=== PATIENT | male | born 1965 | race Caucasian/White ===

== ENCOUNTER 2017-01-07 05:50 | Emergency (ER) | payer MEDICAID ==
[~2017-01-07] VITALS: Ht 154.9 cm; Wt 78.5 kg
[2017-01-07 05:55] VITALS: Ht 154.9 cm; Wt 78.5 kg
--- NOTE | 2017-01-07 07:06 | ERA ---
ER Documentation Chief Complaint Date/Time DATE: 01/07/17 TIME: 07:04 Chief Complaint ABDOMINAL PAIN X1DAY; DENIES N/V/D HPI Patient is a 51-year-old male who presents with gradual onset, constant, moderate, dull right lower quadrant pain for 16 hours. He denies fever, denies vomiting, denies dysuria, denies hematuria. He denies migration or radiation of pain. He denies testicular pain. ROS All systems reviewed and are negative except as per history of present illness. Medications Home Meds Active Scripts Dicyclomine Hcl* (Bentyl*) 10 Mg Capsule, 10 MG PO QID Y for PAIN, #20 CAP Prov:ESTEBAN SALCIDO MD 01/07/17 Polyethylene Glycol* (Miralax*) 17 Gm Powd.pack, 17 GM PO DAILY, #3 Prov:ESTEBAN SALCIDO MD 01/07/17 Allergies Allergies: Coded Allergies: No Known Allergy (Unverified , 11/29/14) PMhx/Soc Past medical history: None Past surgical history: None Social history: Denies tobacco or alcohol History of Surgery: No Anesthesia Reaction: No Hx Neurological Disorder: No Hx Respiratory Disorders: No Hx Cardiac Disorders: No Hx Psychiatric Problems: No Hx Miscellaneous Medical Probl: No Hx Alcohol Use: No Hx Substance Use: No Hx Tobacco Use: No FmHx Family History: No coronary disease, No diabetes Physical Exam Vitals Vital Signs Date Time Temp Pulse Resp B/P Pulse Ox O2 Delivery O2 Flow Rate FiO2 01/07/17 05:55 97.0 63 16 110/73 100 Physical Exam Const: Alert, no acute distress Head: Atraumatic Eyes: Normal Conjunctiva, no pallor, no icterus ENT: Normal External Ears, Nose and Mouth. Mucous membranes moist Neck: Full range of motion..~ No meningismus. Resp: Clear to auscultation bilaterally, no wheezes, rales Cardio: Regular rate and rhythm, no murmurs Abd: Soft, tender in the right lower quadrant with involuntary guarding. Positive Rovsing sign, positive obturator sign. No rebound. Skin: No petechiae or rashes Back: No midline or flank tenderness, no CVA tenderness. Ext: No cyanosis, or edema Neur: Awake and alert, cranial nerves II through XII intact bilaterally, strength and sensation full in 4 extremities. Psych: Normal Mood and Affect Result Diagram: 01/07/17 0722 01/07/17 0722 Results 24 hrs Laboratory Tests Test 01/07/17 07:22 01/07/17 07:24 White Blood Count 5.110^3/ul Red Blood Count 4.8910^6/ul Hemoglobin 14.2g/dl Hematocrit 41.7% Mean Corpuscular Volume 85.3fl Mean Corpuscular Hemoglobin 29.0pg Mean Corpuscular Hemoglobin Concent 34.1g/dl Red Cell Distribution Width 12.5% Platelet Count 72869^3/UL Mean Platelet Volume 11.3fl Neutrophils % 50.4% Lymphocytes % 39.6% Monocytes % 8.0% Eosinophils % 1.4% Basophils % 0.4% Nucleated Red Blood Cells % 0.0/100WBC Neutrophils # 2.610^3/ul Lymphocytes # 2.010^3/ul Monocytes # 0.410^3/ul Eosinophils # 0.110^3/ul Basophils # 0.010^3/ul Nucleated Red Blood Cells # 0.010^3/ul Prothrombin Time 13.6Sec Prothrombin Time Ratio 1.1 INR International Normalized Ratio 1.04 Activated Partial Thromboplast Time 30.3Sec Sodium Level 143mmol/L Potassium Level 3.6mmol/L Chloride Level 101mmol/L Carbon Dioxide Level 27mmol/L Anion Gap 19 Blood Urea Nitrogen 14mg/dl Creatinine 0.86mg/dl Glucose Level 88mg/dl Calcium Level 9.4mg/dl Total Bilirubin 0.8mg/dl Direct Bilirubin 0.00mg/dl Indirect Bilirubin 0.8mg/dl Aspartate Amino Transf (AST/SGOT) 29IU/L Alanine Aminotransferase (ALT/SGPT) 38IU/L Alkaline Phosphatase 89IU/L Total Protein 7.6g/dl Albumin 4.8g/dl Globulin 2.80g/dl Albumin/Globulin Ratio 1.71 Lipase 70U/L Urine Color YELLOW Urine Clarity CLEAR Urine pH 6.0 Urine Specific [place] 1.009 Urine Ketones NEGATIVEmg/dL Urine Nitrite NEGATIVEmg/dL Urine Bilirubin NEGATIVEmg/dL Urine Urobilinogen NEGATIVEmg/dL Urine Leukocyte Esterase NEGATIVELeu/ul Urine Hemoglobin NEGATIVEmg/dL Urine Glucose NEGATIVEmg/dL Urine Total Protein NEGATIVEmg/dl Current Medications Medications (Trade) Dose Ordered Sig/[place] Route PRN Reason Start Time Stop Time Status Last Admin Dose Admin IV Flush 10 ml 10 ml STK-MED ONCE .ROUTE 01/07/17 08:25 01/07/17 08:26 DC Sodium Chloride (NS) 100 ml @ ud STK-MED ONCE .ROUTE 01/07/17 08:25 01/07/17 08:26 DC Iohexol (Omnipaque 300mg/ ml) 150 ml STK-MED ONCE .ROUTE 01/07/17 08:25 01/07/17 08:26 DC Procedures/MDM MDM: Patient is a 51-year-old male who presents with 16 hours of right lower quadrant pain. There is no history of fever, vomiting. There is no leukocytosis. The patient did have guarding and a positive Rovsing sign, so a CT scan was performed to exclude appendicitis. There is no evidence of appendicitis. Urinalysis is unremarkable. On my read of the CT scan, there appears to be a large amount of stool in the ascending colon, which may be causing functional pain. I will prescribe the patient Bentyl and MiraLAX for symptom relief. I have advised him on return precautions if he expresses worsening pain, fever or vomiting. Departure Diagnosis: Primary Impression: Abdominal pain Qualified Code: R10.31 - Right lower quadrant abdominal pain Condition: Stable ESTEBAN SALCIDO MD Jan 07, 2017 07:06
[2017-01-07 07:26] LABS: ADD SCAN DIFF NO
[2017-01-07 07:29] LABS: BASOPHILS % 0.4 % (0.0-2.0); EOSINOPHILS # 0.1 10^3/ul (0.0-0.5); EOSINOPHILS % 1.4 % (0.0-7.0); HEMATOCRIT 41.7 % (42.0-52.0); HEMOGLOBIN 14.2 g/dl (14.0-18.0); LYMPHOCYTES % 39.6 % (15.0-51.0); MEAN CORPUSCULAR HGB CONC 34.1 g/dl (32.0-37.0); MEAN CORPUSCULAR VOLUME 85.3 fl (82.0-101.0); MEAN PLATELET VOLUME 11.3 fl (7.4-10.4); MONOCYTE # 0.4 10^3/ul (0.3-0.9); NEUTROPHIL # 2.6 10^3/ul (1.6-7.5); NEUTROPHILS % 50.4 % (39.0-77.0); PLATELET COUNT 178 10^3/UL (140-415); RED BLOOD COUNT 4.89 10^6/ul (4.70-6.10); RED CELL DISTRIBUTION WIDTH 12.5 % (11.5-14.5); WHITE BLOOD COUNT 5.1 10^3/ul (4.8-10.8)
[2017-01-07 08:08] LABS: INR 1.04; PARTIAL THROMBOPLASTIN TIME 30.3 Sec (25.0-35.0); PROTIME 13.6 Sec (12.2-14.2); PT RATIO 1.1
[2017-01-07 08:09] LABS: ALBUMIN 4.8 g/dl (3.3-4.9); ALBUMIN/GLOBULIN RATIO 1.71; BILIRUBIN,INDIRECT 0.8 mg/dl (0-1.1); BILIRUBIN,TOTAL 0.8 mg/dl (0.2-1.3); CALCIUM 9.4 mg/dl (8.4-10.2); CREATININE 0.86 mg/dl (0.61-1.24); POTASSIUM 3.6 mmol/L (3.5-5.1); TOTAL PROTEIN 7.6 g/dl (6.1-8.1)
[2017-01-07 08:13] LABS: ADD UMIC NO; UR ASCORBIC ACID NEGATIVE (NEGATIVE); UR BILIRUBIN (Dip) NEGATIVE (NEGATIVE); UR BLOOD (Dip) NEGATIVE (NEGATIVE); UR CLARITY CLEAR (CLEAR); UR COLOR YELLOW (YELLOW); UR GLUCOSE (Dip) NEGATIVE (NEGATIVE); UR KETONES (Dip) NEGATIVE (NEGATIVE); UR LEUKOCYTE ESTERASE (Dip) NEGATIVE Leu/ul (NEGATIVE); UR NITRITE (Dip) NEGATIVE (NEGATIVE); UR SPECIFIC GRAVITY (Dip) 1.009 (1.003-1.030); UR TOTAL PROTEIN (Dip) NEGATIVE (NEGATIVE); UR UROBILINOGEN (Dip) NEGATIVE (NEGATIVE)
[2017-01-07] MEDS ORDERED: IOHEXOL 300MG/ML 150 ML BTL ONE (08:25)
[2017-01-07] MEDS ORDERED: SOD CHLORIDE 0.9% 100 ML ONE (08:25)
--- NOTE | 2017-01-07 09:01 | RADRPT ---
PROCEDURE: CT Abdomen and Pelvis with contrast. CLINICAL INDICATION: Abdominal pelvic pain. TECHNIQUE: CT scan of the abdomen and pelvis with contrast was performed on a multi-detector high- resolution CT scanner. The patient was scanned following the uncomplicated intravenous administrati on of 100 cc of Omnipaque 300. Coronal and sagittal reformatted images were obtained from the axial source images. Images were reviewed on a high-resolution PACS workstation. The total exam CTDI equa ls 10.16 mGy and the total exam DLP equals 596.98 mGy-cm. One or more of the following dose reduction techniques were used: - Automated exposure control. - Adjustment of the mA and/or kV according to patient size. - Use of iterative reconstruction technique. COMPARISON: None. FINDINGS: CT abdomen: The lung bases are remarkable for dense subsegmental atelectasis in the posterior lung bases bilater ally. The heart size is normal, without pericardial thickening or effusion. The liver is normal in size and density without focal mass or intrahepatic biliary dilatation. The spleen is normal in si ze and homogeneous in density. The stomach is partially collapsed, but is grossly unremarkable. Th e pancreas as visualized is normal. The gallbladder and biliary tree are unremarkable and there is no evidence for biliary dilatation. The adrenal glands are symmetric and normal. The kidneys are s ymmetrically unremarkable as well. No renal calculus or obstructive uropathy or mass lesion is seen . The aorta is of normal caliber. There is no retroperitoneal lymphadenopathy. The neo hepatis reg ion is clear. The bowel and mesentery, as visualized, are equally unremarkable. CT pelvis: The small bowel loops situated within the pelvis are unremarkable. The appendix is normal. The pel earnestine organs are normal. The pelvic sidewalls and inguinal regions are clear. The sigmoid colon and rectum are unremarkable. No mass or adenopathy is seen. No free fluid is identified. No acute infl ammation is seen. The bladder is normal. The surrounding osseous structures are remarkable for mild multilevel degenerative spondylosis of th e spine. Schmorl's nodes are seen involving the superior and inferior endplates at the L1-2 and L2- 3 levels. No osteolytic or osteoblastic lesion is detected. IMPRESSION: 1. Unremarkable CT scan of the abdomen and pelvis. 2. No mass, lymphadenopathy, or focal acute inflammatory process. RPTAT: HMJB .Thomas Sunshine MD, MD Date Time Electronically viewed and signed by .Thomas Sunshine MD, MD on 01/07/2017 09:01 .B/
[2017-01-07] MEDS ORDERED: DICY10CA60 PO (09:05)
[2017-01-07] MEDS ORDERED: POLY17PO6 PO (09:05)
[2017-01-07 09:21] VITALS: BP 104/66; PULSE 74; RESP 18; TEMP 97.6
== END 2017-01-07 09:22 | disposition home or self-care (01) ==
LOC: FTE 05:50
DX: R10.31 Right lower quadrant pain (principal)
CPT/HCPCS: 36415; 74177; 80053; 81003; 83690; 85025; 85610; 85730; Q9967; Z7502; Z7610

== ENCOUNTER 2017-07-29 20:52 | Emergency (ER) | END 2017-07-29 23:28 | disposition home or self-care (01) ==

== ENCOUNTER 2018-06-28 20:40 | Emergency (ER) | payer MEDICAID ==
[~2018-06-28] VITALS: Wt 78.9 kg
[~2018-06-28 20:40] MED LIST: BENZ200C68 PO; DICY10CA40 PO; FLUT9.9S NASAL; IBUP-1542 PO; POLY17PO6 PO
--- NOTE | 2018-06-28 21:31 | ERD ---
ER Documentation Chief Complaint Chief Complaint bib self, cc: left sided cp radiating to back x 1 day, worse inspiration HPI 53-year-old male who presents with left-sided chest pain that is rating his back for the last day. Is described as sharp, is associated with movement particularly with turning his body to the left side. He denies exertional symptoms, he has no shortness of breath, no hemoptysis, no leg swelling. He has had no immobility, he has no cardiac history, he is a non-smoker. There are no alleviating factors, his symptoms are intermittent. ROS All systems reviewed and are negative except as per history of present illness. Medications Home Meds Discontinued Scripts Benzonatate* (Benzonatate*) 200 Mg Capsule, 200 MG PO TID PRN for COUGH, #15 CAP Prov:MARQUIS VÁZQUEZ PA-C 07/29/17 Fluticasone Propionate (Flonase Allergy Relief) 9.9 Ml Ennice.susp, 1 SPRAY NASAL BID, #1 BOTTLE TO EACH NOSTRIL Prov:MARQUIS VÁZQUEZ PA-C 07/29/17 Ibuprofen* (Motrin*) 600 Mg Tab, 600 MG PO Q6, #30 TAB Prov:MARQUIS VÁZQUEZ PA-C 07/29/17 Dicyclomine HCl (Dicyclomine HCl) 10 Mg Capsule, 10 MG PO QID PRN for PAIN, #20 CAP Prov:ESTEBAN SALCIDO MD 01/07/17 Polyethylene Glycol* (Miralax*) 17 Gm Powd.pack, 17 GM PO DAILY, #3 Prov:ESTEBAN SALCIDO MD 01/07/17 Allergies Allergies: Coded Allergies: No Known Allergy (Unverified , 06/28/18) PMhx/Soc Medical and Surgical Hx: pt denies Medical Hx, pt denies Surgical Hx History of Surgery: No Anesthesia Reaction: No Hx Neurological Disorder: No Hx Respiratory Disorders: No Hx Cardiac Disorders: No Hx Psychiatric Problems: No Hx Miscellaneous Medical Probl: No Hx Alcohol Use: No Hx Substance Use: No Hx Tobacco Use: No Smoking Status: Never smoker Physical Exam Vitals Vital Signs Date Temp Pulse Resp B/P (MAP) Pulse Ox O2 O2 Flow FiO2 Time Delivery Rate 06/29/18 65 14 124/87 98 Room Air 00:16 (99) 06/28/18 68 18 119/87 98 Room Air 23:08 (98) 06/28/18 98.6 67 16 118/83 97 Room Air 21:25 (95) 06/28/18 98.3 72 19 142/87 100 20:43 (105) Physical Exam Const: No acute distress Head: Atraumatic Eyes: Normal Conjunctiva ENT: Normal External Ears, Nose and Mouth. Neck: Full range of motion. No meningismus. Resp: Clear to auscultation bilaterally Cardio: Regular rate and rhythm, no murmurs Abd: Soft, non tender, non distended. Normal bowel sounds Skin: No petechiae or rashes Back: No midline or flank tenderness Ext: No cyanosis, or edema Neur: Awake and alert Psych: Normal Mood and Affect Result Diagram: 06/28/18210906/28/182109 Results 24 hrs Laboratory Tests Test 06/28/18 21:10 06/29/18 00:32 White Blood Count 6.0 10^3/ul Red Blood Count 4.87 10^6/ul Hemoglobin 14.3 g/dl Hematocrit 42.3 % Mean Corpuscular Volume 86.9 fl Mean Corpuscular Hemoglobin 29.4 pg Mean Corpuscular Hemoglobin Concent 33.8 g/dl Red Cell Distribution Width 12.6 % Platelet Count 208 10^3/UL Mean Platelet Volume 10.4 fl Immature Granulocytes % 0.200 % Neutrophils % 47.9 % Lymphocytes % 43.0 % Monocytes % 7.2 % Eosinophils % 1.2 % Basophils % 0.5 % Nucleated Red Blood Cells % 0.0 /100WBC Immature Granulocytes # 0.010 10^3/ul Neutrophils # 2.9 10^3/ul Lymphocytes # 2.6 10^3/ul Monocytes # 0.4 10^3/ul Eosinophils # 0.1 10^3/ul Basophils # 0.0 10^3/ul Nucleated Red Blood Cells # 0.0 10^3/ul Prothrombin Time 13.1 Sec Prothrombin Time Ratio 1.0 INR International Normalized Ratio 0.98 Sodium Level 139 mmol/L Potassium Level 3.8 mmol/L Chloride Level 102 mmol/L Carbon Dioxide Level 28 mmol/L Anion Gap 9 Blood Urea Nitrogen 13 mg/dl Creatinine 0.87 mg/dl Est Glomerular Filtrat Rate mL/min > 60 mL/min Glucose Level 102 mg/dl Calcium Level 9.3 mg/dl Total Bilirubin 0.6 mg/dl Direct Bilirubin 0.00 mg/dl Indirect Bilirubin 0.6 mg/dl Aspartate Amino Transf (AST/SGOT) 38 IU/L Alanine Aminotransferase (ALT/SGPT) 36 IU/L Alkaline Phosphatase 98 IU/L Troponin I < 0.012 ng/ml < 0.012 ng/ml Total Protein 8.0 g/dl Albumin 4.5 g/dl Globulin 3.50 g/dl Albumin/Globulin Ratio 1.28 Lipase 107 U/L Procedures/MDM This is a 53-year-old male who presents with atypical chest pain. Symptoms appear to be movement associated, there is no exertional quality. The patient presents with chest pain and I considered pulmonary embolism, aortic dissection, pneumothorax among other diagnoses. Evaluation for acute coronary syndrome was performed. The HEART score (www.mdcalc.com) was utilized for risk stratification and found to be = 3. Repeattroponin @ 3 hours were unchanged. Based on this evaluation the patients risk of major adverse cardiac events is <1%. Shared decision making occurred with patient and the decision has been made to discharge the patient for outpatient evaluation and functional study within 72 hours. Chest X-ray 1V Interpreted by me: Soft Tissue: No acute abnormalities Bones: No acute abnormalities Mediastinum/Cardiac Silhouette/Lungs: No acute abnormalities EKG: Rate/Rhythm: Normal Sinus Rhythm QRS, ST, T-waves: No changes consistent w/ acute ischemia Impression: No evidence of ischemia or arrhythmia Departure Diagnosis: Primary Impression: Chest pain Chest pain type: unspecified Qualified Codes: R07.9 - Chest pain, unspecified Condition: Stable JOHN JOHNSTON MD Jun 28, 2018 21:31
[2018-06-29 00:16] VITALS: BP 124/87; PULSE 65; RESP 14
== END 2018-06-29 01:27 | disposition home or self-care (01) ==
LOC: E/R 20:40
DX: R07.9 Chest pain, unspecified (principal)
CPT/HCPCS: 36415; 71045; 80053; 83690; 84484; 85025; 85610; 93005